=== PATIENT | female | born 1935 | race Two or more races ===

== ENCOUNTER 2017-03-12 09:25 | Outpatient (CLI) | payer OTHER ==
[~2017-03-12 09:25] MED LIST: CIPRO500 MG PO; GLYBURIDE 2.5 MG; IBUPROFEN800 MG PO
== END 2017-03-12 10:11 | disposition home or self-care (01) ==
LOC: LAB 09:25
DX: E78.2 Mixed hyperlipidemia (principal); E11.65 Type 2 diabetes mellitus with hyperglycemia

== ENCOUNTER 2017-08-15 12:36 | Outpatient (CLI) | payer OTHER | END 2017-08-15 12:39 | disposition home or self-care (01) | LOC: RAD 12:36 | DX: R06.89 Other abnormalities of breathing (principal) ==

== ENCOUNTER 2017-10-20 10:43 | Outpatient (CLI) | payer OTHER | END 2017-10-20 10:48 | disposition home or self-care (01) | LOC: LAB 10:43 | DX: E78.2 Mixed hyperlipidemia (principal); E11.65 Type 2 diabetes mellitus with hyperglycemia; Z12.11 Encounter for screening for malignant neoplasm of colon ==

== ENCOUNTER 2018-02-16 12:56 | Outpatient (CLI) | payer OTHER | END 2018-02-16 13:06 | disposition home or self-care (01) | LOC: LAB 12:56 | DX: E78.2 Mixed hyperlipidemia (principal); E11.65 Type 2 diabetes mellitus with hyperglycemia; I10 Essential (primary) hypertension ==

== ENCOUNTER 2018-04-30 10:26 | Outpatient (CLI) | payer OTHER | END 2018-04-30 10:43 | disposition home or self-care (01) | LOC: LAB 10:26 | DX: E78.2 Mixed hyperlipidemia (principal); E11.65 Type 2 diabetes mellitus with hyperglycemia; I10 Essential (primary) hypertension ==

== ENCOUNTER 2018-07-30 09:17 | Outpatient (CLI) | payer OTHER | END 2018-07-30 12:02 | disposition home or self-care (01) | LOC: LAB 09:17 | DX: E78.2 Mixed hyperlipidemia (principal); E11.65 Type 2 diabetes mellitus with hyperglycemia ==

== ENCOUNTER 2018-10-28 09:51 | Outpatient (CLI) | payer OTHER | END 2018-10-28 09:58 | disposition home or self-care (01) | LOC: LAB 09:51 | DX: E78.2 Mixed hyperlipidemia (principal); E11.65 Type 2 diabetes mellitus with hyperglycemia; I10 Essential (primary) hypertension; E55.9 Vitamin D deficiency, unspecified ==

== ENCOUNTER 2019-02-17 09:25 | Outpatient (CLI) | payer OTHER | END 2019-02-17 09:32 | disposition home or self-care (01) | LOC: LAB 09:25 | DX: E78.2 Mixed hyperlipidemia (principal); E11.65 Type 2 diabetes mellitus with hyperglycemia; I10 Essential (primary) hypertension ==

== ENCOUNTER 2020-01-14 09:16 | Outpatient (CLI) | payer OTHER | END 2020-01-14 09:24 | disposition home or self-care (01) | LOC: LAB 09:16 | PROVIDERS: ATTEND Specialist | DX: E11.29 Type 2 diabetes mellitus with other diabetic kidney complication (principal); I10 Essential (primary) hypertension; R06.09 Other forms of dyspnea; E78.00 Pure hypercholesterolemia, unspecified; E06.0 Acute thyroiditis; E55.9 Vitamin D deficiency, unspecified ==

== ENCOUNTER 2020-04-11 09:22 | Outpatient (CLI) | payer OTHER | END 2020-04-11 09:26 | disposition home or self-care (01) | LOC: LAB 09:22 | PROVIDERS: ATTEND Specialist | DX: E11.9 Type 2 diabetes mellitus without complications (principal); E78.2 Mixed hyperlipidemia; E06.0 Acute thyroiditis; I10 Essential (primary) hypertension ==

== ENCOUNTER 2021-08-21 02:40 | Emergency (ER) | payer OTHER ==
[~2021-08-21] VITALS: Ht 149.9 cm; Wt 68.0 kg
[2021-08-21] MEDS ORDERED: KETO10TA2 PO (05:33)
[2021-08-21] MEDS ORDERED: NORFLEX100MG PO (05:33)
== END 2021-08-21 06:00 | disposition home or self-care (01) ==
LOC: ER 02:40
DX: R07.89 Other chest pain (principal); M54.9 Dorsalgia, unspecified; Z20.822 Contact with and (suspected) exposure to COVID-19

== ENCOUNTER 2022-04-24 12:43 | Outpatient (CLI) | payer OTHER ==
[~2022-04-24 12:43] MED LIST changes: +GLIMEPIRIDE1 M1; +KETO10TA2 PO; +NORFLEX100MG PO
== END 2022-04-24 12:54 | disposition home or self-care (01) ==
LOC: NUCLEAR 12:43
PROVIDERS: ATTEND Specialist
DX: M81.0 Age-related osteoporosis without current pathological fracture (principal)

== ENCOUNTER 2022-07-17 08:25 | Outpatient (CLI) | payer OTHER | END 2022-07-17 08:29 | disposition home or self-care (01) | LOC: LAB 08:25 | PROVIDERS: ATTEND Specialist | DX: E78.2 Mixed hyperlipidemia (principal); E11.65 Type 2 diabetes mellitus with hyperglycemia; I10 Essential (primary) hypertension ==

== ENCOUNTER 2022-10-23 08:18 | Outpatient (CLI) | payer OTHER | END 2022-10-23 08:20 | disposition home or self-care (01) | LOC: LAB 08:18 | PROVIDERS: ATTEND Specialist | DX: E78.2 Mixed hyperlipidemia (principal); I10 Essential (primary) hypertension; E11.65 Type 2 diabetes mellitus with hyperglycemia ==

== ENCOUNTER 2022-11-05 13:02 | Outpatient (CLI) | payer OTHER | END 2022-11-05 13:20 | disposition home or self-care (01) | LOC: MRI 13:02 | PROVIDERS: ATTEND Specialist | DX: Z12.31 Encounter for screening mammogram for malignant neoplasm of breast (principal); N63.0 Unspecified lump in unspecified breast; G47.51 Confusional arousals; R41.0 Disorientation, unspecified; F02.A3 Dementia in other diseases classified elsewhere, mild, with mood disturbance | CPT/HCPCS: 70551 ==

== ENCOUNTER 2023-01-22 10:40 | Outpatient (CLI) | payer OTHER ==
[2023-01-22 11:32] LABS: HEMOGLOBIN 13.9 g/dL (12.0-15.00); MEAN CELL VOLUME 91.2 fL (80.00-100.00); MEAN CORPUSCULAR HEMOGLOBIN 30.2 pg (27.00-32.0); MEAN CORPUSCULAR HGB CONC 33.1 g/dl (32.0-36.0); PLATELET COUNT 246 K/uL (150-450); RED BLOOD COUNT 4.61 M/uL (4.00-6.00); RED CELL DISTRIBUTION WIDTH 13.8 % (11.5-14.5)
[2023-01-22 12:07] LABS: ALBUMIN 3.7 gm/dL (3.4-5.0); BILIRUBIN TOTAL 0.56 mg/dL (0.3-1.2); CALCIUM 9.6 mg/dL (8.5-10.1); CHOL HDL RATIO 2.6 (0-5.0); CREATININE SERUM 0.95 mg/dL (0.55-1.02); GFR 55.77; GLOBULINA 4.3 G/DL (2.4-3.5); POTASSIUM 4.37 mEq/L (3.5-5.1)
== END 2023-01-22 10:47 | disposition home or self-care (01) ==
LOC: LAB 10:40
PROVIDERS: ATTEND Specialist
DX: E78.2 Mixed hyperlipidemia (principal); E11.65 Type 2 diabetes mellitus with hyperglycemia; E53.8 Deficiency of other specified B group vitamins; I10 Essential (primary) hypertension

== ENCOUNTER 2023-04-08 12:22 | Inpatient (IN) | payer OTHER ==
[~2023-04-08] VITALS: Ht 160 cm; Wt 71.2 kg
[2023-04-08] MEDS ORDERED: METHYLPREDNISOLONE SOD SUCC 125 MG VIAL IV ONE (15:45)
[2023-04-08] MEDS ORDERED: IPRATROPIUM BROMIDE 0.5 MG/2.5 ML AMPUL.NEB IH SCH ×2 (15:45→21:00)
[2023-04-08] MEDS ORDERED: LEVALBUTEROL HCL 0.63 MG/3 ML SOLUTION IH SCH ×2 (15:45→21:00)
[2023-04-08 16:23] LABS: HEMATOCRIT 44.1 % (36.0-45.00); HEMOGLOBIN 14.6 g/dL (12.0-15.00); MEAN CORPUSCULAR HEMOGLOBIN 30.1 pg (27.00-32.0); MEAN CORPUSCULAR HGB CONC 33.1 g/dl (32.0-36.0); PLATELET COUNT 264 K/uL (150-450); RED BLOOD COUNT 4.85 M/uL (4.00-6.00); RED CELL DISTRIBUTION WIDTH 13.4 % (11.5-14.5)
[2023-04-08 16:43] LABS: CREATININE SERUM 0.93 mg/dL (0.55-1.02); GFR 57.16; POTASSIUM 4.66 mEq/L (3.5-5.1)
[2023-04-08 18:16] LABS: ABG PH 7.386 (7.35-7.45); ABG PO2 71.7 mmHg (80-100); ABG pCO2 36.7 mmHg (35-45); SaO2 93.8 %
[2023-04-08 18:17] LABS: BASE EXCESS -2.9 mmol/l; BICARBONATE 21.5 mmol/l (23-25); Tco2 22.6 mmol/l; allen test SATISFACTORY; o2 21 %; puncture site RADIAL RIGHT
[2023-04-08] MEDS ORDERED: ONDANSETRON HCL 4 MG in 0.9 % SODIUM CHLORIDE 50 ML IV PRN (20:15)
[2023-04-08] MEDS ORDERED: DEXTROSE 50 % IN WATER 0.5 G/ML DISP.SYRIN IV PRN (20:15)
[2023-04-08] MEDS ORDERED: INSULIN LISPRO 1,000 UNIT/10 ML UNITS SUBCUTANEO PRN (20:15)
[2023-04-08] MEDS ORDERED: BENZONATATE 100 MG CAPSULE PO PRN (20:15)
[2023-04-08] MEDS ORDERED: METHYLPREDNISOLONE SOD SUCC 40 MG VIAL IV SCH (21:00)
[2023-04-08] MEDS ORDERED: BUDESONIDE 0.5 MG/2 ML AMPUL.NEB IH SCH (21:00)
[2023-04-08] MEDS ORDERED: INSULIN REGULAR, HUMAN 300 UNITS/3 ML UNITS SUBCUTANEO ONE (22:00)
[2023-04-08] MEDS ORDERED: INSULIN REGULAR, HUMAN 300 UNITS/3 ML UNITS IV ONE (22:00)
[2023-04-09 06:17] LABS: HEMATOCRIT 39.7 % (36.0-45.00); HEMOGLOBIN 13.3 g/dL (12.0-15.00); MEAN CELL VOLUME 89.5 fL (80.00-100.00); MEAN CORPUSCULAR HGB CONC 33.5 g/dl (32.0-36.0); PLATELET COUNT 223 K/uL (150-450); RED BLOOD COUNT 4.43 M/uL (4.00-6.00); RED CELL DISTRIBUTION WIDTH 13.7 % (11.5-14.5)
[2023-04-09 06:47] LABS: CALCIUM 9.3 mg/dL (8.5-10.1); CREATININE SERUM 0.88 mg/dL (0.55-1.02); GFR 60.93; POTASSIUM 4.77 mEq/L (3.5-5.1)
[2023-04-09] MEDS ORDERED: CEFTRIAXONE SODIUM 2,000 MG in DEXTROSE 5 % IN WATER 100 ML IV SCH (09:00)
[2023-04-09] MEDS ORDERED: AZITHROMYCIN 500 MG in 0.9 % SODIUM CHLORIDE 250 ML IV SCH (09:00)
[2023-04-09] MEDS ORDERED: PANTOPRAZOLE SODIUM 40 MG/VIAL VIAL IV SCH (09:00)
[2023-04-10 06:37] LABS: HEMATOCRIT 37.5 % (36.0-45.00); HEMOGLOBIN 12.4 g/dL (12.0-15.00); MEAN CELL VOLUME 90.3 fL (80.00-100.00); MEAN CORPUSCULAR HGB CONC 33.2 g/dl (32.0-36.0); PLATELET COUNT 266 K/uL (150-450); RED BLOOD COUNT 4.15 M/uL (4.00-6.00); RED CELL DISTRIBUTION WIDTH 13.4 % (11.5-14.5)
[2023-04-10 06:54] LABS: C-REACTIVE PROTEIN 0.58 MG/DL (0.00-0.29)
[2023-04-10] MEDS ORDERED: ALPRAzolam 0.5 MG TABLET PO SCH (21:00)
[2023-04-10] MEDS ORDERED: METHYLPREDNISOLONE SOD SUCC 40 MG VIAL IV SCH (21:00)
[2023-04-11 06:14] LABS: HEMATOCRIT 38.4 % (36.0-45.00); HEMOGLOBIN 12.8 g/dL (12.0-15.00); MEAN CELL VOLUME 91.4 fL (80.00-100.00); MEAN CORPUSCULAR HEMOGLOBIN 30.4 pg (27.00-32.0); MEAN CORPUSCULAR HGB CONC 33.2 g/dl (32.0-36.0); PLATELET COUNT 266 K/uL (150-450); RED CELL DISTRIBUTION WIDTH 13.4 % (11.5-14.5)
[2023-04-11 06:22] LABS: ALBUMIN 3.3 gm/dL (3.4-5.0); BILIRUBIN TOTAL 0.25 mg/dL (0.3-1.2); CALCIUM 9.7 mg/dL (8.5-10.1); CREATININE SERUM 1.01 mg/dL (0.55-1.02); GFR 51.97; GLOBULINA 4.2 G/DL (2.4-3.5); MAGNESIUM 2.3 mg/dL (1.8-2.4); PHOSPHOROUS 3.8 mg/dL (2.5-4.9); POTASSIUM 5.13 mEq/L (3.5-5.1); TOTAL PROTEIN 7.5 gm/dL (6.4-8.2)
[2023-04-13 07:39] LABS: MEAN CELL VOLUME 90.1 fL (80.00-100.00); MEAN CORPUSCULAR HGB CONC 33.3 g/dl (32.0-36.0); PLATELET COUNT 276 K/uL (150-450); RED BLOOD COUNT 4.33 M/uL (4.00-6.00); RED CELL DISTRIBUTION WIDTH 13.2 % (11.5-14.5)
[2023-04-13 07:55] LABS: CALCIUM 9.3 mg/dL (8.5-10.1); CREATININE SERUM 0.81 mg/dL (0.55-1.02); GFR 67.04; POTASSIUM 4.79 mEq/L (3.5-5.1)
[2023-04-13] MEDS ORDERED: REG INSULIN SUBCUTANEO SCH (08:00)
[2023-04-13] MEDS ORDERED: INSULIN NPH HUM SUBCUTANEO SCH (08:00)
[2023-04-13] MEDS ORDERED: INSULIN NPH HUMAN ISOPHANE 1,000 UNITS/10 ML UNITS SUBCUTANEO SCH (21:00)
[2023-04-14] MEDS ORDERED: REG INSULIN SUBCUTANEO SCH (08:00)
[2023-04-14] MEDS ORDERED: INSULIN NPH HUM SUBCUTANEO SCH (08:00)
[2023-04-15] MEDS ORDERED: MEDROLPACK PO (16:35)
[2023-04-16] MEDS ORDERED: INSULIN NPH HUM/REG INSULIN HM 1,000 UNIT/10 ML UNITS SUBCUTANEO SCH (08:00)
== END 2023-04-15 18:55 | disposition home or self-care (01) | DRG 190 ==
LOC: ER 12:22 → MEDJ 20:22
PROVIDERS: General Practice; Internal Medicine; Internal Medicine Infectious Disease; ADMIT Internal Medicine; ATTEND Internal Medicine
PROC: BB24ZZZ Computerized Tomography (CT Scan) of Bilateral Lungs (ICD-10-PCS; principal; 2023-04-08)
PROC: 3E0F7GC Introduction of Other Therapeutic Substance into Respiratory Tract, Via Natural or Artificial Opening (ICD-10-PCS; 2023-04-08)
PROC: B246ZZZ Ultrasonography of Right and Left Heart (ICD-10-PCS; 2023-04-10)
DX: J44.1 Chronic obstructive pulmonary disease with (acute) exacerbation (principal); J18.9 Pneumonia, unspecified organism; E11.9 Type 2 diabetes mellitus without complications; Z79.4 Long term (current) use of insulin

== ENCOUNTER → 2023-05-01 09:33 | Outpatient (CLI) | payer OTHER ==
[~2023-05-01 09:33] MED LIST changes: +MEDROLPACK PO
[2023-05-01 10:46] LABS: HEMATOCRIT 42.6 % (36.0-45.00); HEMOGLOBIN 14.2 g/dL (12.0-15.00); MEAN CELL VOLUME 88.9 fL (80.00-100.00); MEAN CORPUSCULAR HEMOGLOBIN 29.6 pg (27.00-32.0); MEAN CORPUSCULAR HGB CONC 33.3 g/dl (32.0-36.0); PLATELET COUNT 206 K/uL (150-450); RED BLOOD COUNT 4.79 M/uL (4.00-6.00); RED CELL DISTRIBUTION WIDTH 13.8 % (11.5-14.5)
[2023-05-01 11:12] LABS: ALBUMIN 3.4 gm/dL (3.4-5.0); BILIRUBIN TOTAL 0.52 mg/dL (0.3-1.2); CALCIUM 9.5 mg/dL (8.5-10.1); CHOL HDL RATIO 2.7 (0-5.0); CREATININE SERUM 0.72 mg/dL (0.55-1.02); GFR 76.8; POTASSIUM 4.2 mEq/L (3.5-5.1); TOTAL PROTEIN 7.4 gm/dL (6.4-8.2)
== END | disposition home or self-care (01) ==
LOC: LAB 09:33
PROVIDERS: ATTEND Specialist
DX: E78.2 Mixed hyperlipidemia (principal); E11.65 Type 2 diabetes mellitus with hyperglycemia; I10 Essential (primary) hypertension

== ENCOUNTER 2023-09-03 08:48 | Emergency (ER) | payer OTHER ==
[~2023-09-03] VITALS: Ht 154.9 cm; Wt 70.3 kg
[2023-09-03] MEDS ORDERED: FAMOTIDINE/PF 20 MG in 0.9 % SODIUM CHLORIDE 8 ML IV PUSH STA (09:24)
[2023-09-03] MEDS ORDERED: DIPHENOXYLATE HCL/ATROPINE 1 UDTAB TABLET PO ONE (09:30)
[2023-09-03] MEDS ORDERED: GUAIFENESIN/DEXTROMETHORPHAN 10ML BLIST.PACK PO ONE (09:30)
[2023-09-03] MEDS ORDERED: 0.9 % SODIUM CHLORIDE 1,000 ML IV ONE (09:30)
[2023-09-03] MEDS ORDERED: FAMOTIDINE/PF 20 MG/2 ML VIAL ONE (09:56)
[2023-09-03] MEDS ORDERED: GUAIFEN/DEXTROMETHORPHAN/PE 10 ML BLIST.PACK PO ONE (09:56)
[2023-09-03 10:18] LABS: HEMATOCRIT 43.9 % (36.0-45.00); HEMOGLOBIN 14.9 g/dL (12.0-15.00); MEAN CELL VOLUME 89.7 fL (80.00-100.00); MEAN CORPUSCULAR HEMOGLOBIN 30.4 pg (27.00-32.0); MEAN CORPUSCULAR HGB CONC 33.9 g/dl (32.0-36.0); PLATELET COUNT 266 K/uL (150-450); RED CELL DISTRIBUTION WIDTH 13.6 % (11.5-14.5)
[2023-09-03 11:16] LABS: ALBUMIN 3.7 gm/dL (3.4-5.0); BILIRUBIN TOTAL 0.45 mg/dL (0.3-1.2); CREATININE SERUM 0.95 mg/dL (0.55-1.02); GFR 55.77; GLOBULINA 4.9 G/DL (2.4-3.5); POTASSIUM 4.26 mEq/L (3.5-5.1); TOTAL PROTEIN 8.6 gm/dL (6.4-8.2)
[2023-09-03 11:43] LABS: PH,URINE 5.5 (5.0-8.0); URINE APPEARANCE Clear; URINE BILIRRUBIN Negative (NEGATIVE); URINE BLOOD Negative; URINE COLOR Yellow; URINE GLUCOSE Negative (NEGATIVE); URINE LEUKOCYTE Small; URINE NITRATE Negative; URINE PROTEIN 30 (NEGATIVE); URINE UROBILINOGEN 0.2 E.U./dl
[2023-09-03 11:46] LABS: URINE BACTERIA 100.7 uL (0.0-1933); URINE EPITHELIAL CELLS 61.2 uL (0.0-38.8); URINE RBC 2.7 uL (0.0-20.8); URINE WBC 17.6 uL (0.0-23.2)
[2023-09-03] MEDS ORDERED: PEPCID AC20 MG PO (13:24)
[2023-09-03] MEDS ORDERED: TUSNEL LIQUID178 ML PO (14:11)
[2023-09-03] MEDS ORDERED: ZITHROMAX500 MG PO (14:11)
== END 2023-09-03 14:17 | disposition home or self-care (01) ==
LOC: ER 08:49
PROVIDERS: General Practice
DX: B34.9 Viral infection, unspecified (principal); R19.7 Diarrhea, unspecified; Z20.822 Contact with and (suspected) exposure to COVID-19; Z88.5 Allergy status to narcotic agent

== ENCOUNTER 2023-09-24 09:14 | Emergency (ER) | payer OTHER ==
[~2023-09-24] VITALS: Ht 154.9 cm; Wt 69.4 kg
[~2023-09-24 09:14] MED LIST changes: +PEPCID AC20 MG PO; +TUSNEL LIQUID178 ML PO; +ZITHROMAX500 MG PO
[2023-09-24] MEDS ORDERED: ONDANSETRON HCL 2 MG/ML VIAL ONE (09:42)
[2023-09-24] MEDS ORDERED: FAMOtidine 200mg/20ml VIAL ONE (09:44)
[2023-09-24] MEDS ORDERED: 0.9 % SODIUM CHLORIDE 500 ML IV ONE (09:45)
[2023-09-24] MEDS ORDERED: ONDANSETRON HCL 2 MG/ML VIAL IV ONE (09:45)
[2023-09-24] MEDS ORDERED: FAMOtidine 10 MG/ML (4ML VIAL) IV ONE (09:45)
[2023-09-24 11:05] LABS: HEMATOCRIT 37.4 % (36.0-45.00); HEMOGLOBIN 12.6 g/dL (12.0-15.00); MEAN CELL VOLUME 87.8 fL (80.00-100.00); MEAN CORPUSCULAR HEMOGLOBIN 29.6 pg (27.00-32.0); MEAN CORPUSCULAR HGB CONC 33.8 g/dl (32.0-36.0); PLATELET COUNT 215 K/uL (150-450); RED BLOOD COUNT 4.26 M/uL (4.00-6.00)
[2023-09-24 11:27] LABS: ALBUMIN 3.2 gm/dL (3.4-5.0); BILIRUBIN TOTAL 0.38 mg/dL (0.3-1.2); CREATININE SERUM 0.75 mg/dL (0.55-1.02); GFR 73.27; GLOBULINA 4.1 G/DL (2.4-3.5); POTASSIUM 3.82 mEq/L (3.5-5.1); TOTAL PROTEIN 7.3 gm/dL (6.4-8.2)
== END 2023-09-24 15:03 | disposition home or self-care (01) ==
LOC: ER 09:15
PROVIDERS: General Practice
DX: R19.7 Diarrhea, unspecified (principal); A05.9 Bacterial foodborne intoxication, unspecified; Z88.8 Allergy status to other drugs, medicaments and biological substances; Z20.822 Contact with and (suspected) exposure to COVID-19; E11.9 Type 2 diabetes mellitus without complications; Z79.84 Long term (current) use of oral hypoglycemic drugs
CPT/HCPCS: 36415; 96365; 99282; J2405; J3490; J7042

== ENCOUNTER 2024-03-07 10:55 | Emergency (ER) | payer OTHER ==
[~2024-03-07] VITALS: Ht 160 cm; Wt 69.9 kg
[2024-03-07] MEDS ORDERED: KETOROLAC TROMETHAMINE 30 MG VIAL IM STA (12:52)
[2024-03-07] MEDS ORDERED: KETOROLAC TROMETHAMINE 60 MG VIAL IM ONE (13:00)
[2024-03-07 13:59] LABS: HEMATOCRIT 40.6 % (36.0-45.00); HEMOGLOBIN 13.5 g/dL (12.0-15.00); MEAN CORPUSCULAR HEMOGLOBIN 29.8 pg (27.00-32.0); MEAN CORPUSCULAR HGB CONC 33.2 g/dl (32.0-36.0); PLATELET COUNT 229 K/uL (150-450); RED BLOOD COUNT 4.52 M/uL (4.00-6.00); RED CELL DISTRIBUTION WIDTH 13.8 % (11.5-14.5)
== END 2024-03-07 14:58 | disposition home or self-care (01) ==
LOC: ER 10:58
PROVIDERS: General Practice
DX: M94.0 Chondrocostal junction syndrome [Tietze] (principal); Z88.5 Allergy status to narcotic agent

== ENCOUNTER 2024-06-19 22:39 | Emergency (ER) | payer OTHER ==
[~2024-06-19] VITALS: Ht 160 cm; Wt 69.4 kg
[2024-06-20] MEDS ORDERED: FAMOTIDINE/PF 20 MG in 0.9 % SODIUM CHLORIDE 8 ML IV PUSH STA (00:18)
[2024-06-20] MEDS ORDERED: ONDANSETRON HCL 2 MG/ML VIAL ONE (00:22)
[2024-06-20] MEDS ORDERED: FAMOTIDINE/PF 20 MG/2 ML VIAL ONE (00:22)
[2024-06-20] MEDS ORDERED: HYOSCYAMINE SULFATE 0.125 MG TAB.SUBL ONE (00:22)
[2024-06-20] MEDS ORDERED: 0.9 % SODIUM CHLORIDE 1,000 ML IV SCH (00:30)
[2024-06-20] MEDS ORDERED: ONDANSETRON HCL 2 MG/ML VIAL IV ONE (00:30)
[2024-06-20] MEDS ORDERED: HYOSCYAMINE SULFATE 0.125 MG TAB.SUBL SL ONE (00:30)
[2024-06-20 01:21] LABS: HEMATOCRIT 39.4 % (36.0-45.00); MEAN CELL VOLUME 89.9 fL (80.00-100.00); MEAN CORPUSCULAR HEMOGLOBIN 29.7 pg (27.00-32.0); MEAN CORPUSCULAR HGB CONC 33.1 g/dl (32.0-36.0); PLATELET COUNT 224 K/uL (150-450); RED BLOOD COUNT 4.39 M/uL (4.00-6.00); RED CELL DISTRIBUTION WIDTH 14.1 % (11.5-14.5)
[2024-06-20 01:32] LABS: ALBUMIN 3.3 gm/dL (3.4-5.0); BILIRUBIN TOTAL 0.44 mg/dL (0.3-1.2); CALCIUM 8.8 mg/dL (8.5-10.1); CREATININE SERUM 0.95 mg/dL (0.55-1.02); GFR 55.64; GLOBULINA 4.1 G/DL (2.4-3.5); POTASSIUM 4.51 mEq/L (3.5-5.1); TOTAL PROTEIN 7.4 gm/dL (6.4-8.2)
[2024-06-20 01:50] LABS: URINE APPEARANCE Clear; URINE BILIRRUBIN Negative (NEGATIVE); URINE BLOOD Small; URINE COLOR Yellow; URINE GLUCOSE Negative (NEGATIVE); URINE KETONE Negative (NEGATIVE); URINE LEUKOCYTE Small; URINE NITRATE Negative; URINE PROTEIN Negative (NEGATIVE); URINE UROBILINOGEN 0.2 E.U./dl
[2024-06-20 01:51] LABS: URINE BACTERIA 734.1 uL (0.0-1933); URINE EPITHELIAL CELLS 14.3 uL (0.0-38.8); URINE RBC 16.7 uL (0.0-20.8); URINE WBC 54.4 uL (0.0-23.2)
[2024-06-20 01:54] LABS: URINE CAST 0.44 uL (0.0-1.40)
== END 2024-06-20 06:01 | disposition home or self-care (01) ==
LOC: ER 22:41
PROVIDERS: General Practice
DX: K29.70 Gastritis, unspecified, without bleeding (principal); Z88.8 Allergy status to other drugs, medicaments and biological substances; E11.9 Type 2 diabetes mellitus without complications; Z79.84 Long term (current) use of oral hypoglycemic drugs
CPT/HCPCS: 36415; 74176; 93005; 96365; 96366; 99284; J2405; J3490; J7030

== ENCOUNTER 2024-12-18 16:08 | Emergency (ER) | payer OTHER ==
[~2024-12-18] VITALS: Ht 157.5 cm; Wt 69.4 kg
[2024-12-18] MEDS ORDERED: CEFTRIAXONE SODIUM 1,000 MG VIAL IV ONE (18:00)
[2024-12-18] MEDS ORDERED: FAMOtidine 10 MG/ML (4ML VIAL) IV ONE (18:00)
[2024-12-18] MEDS ORDERED: 0.9 % SODIUM CHLORIDE 1,000 ML IV ONE (18:00)
[2024-12-18] MEDS ORDERED: CEFTRIAXONE SODIUM 1,000 MG VIAL ONE (18:11)
[2024-12-18] MEDS ORDERED: FAMOTIDINE/PF 20 MG/2 ML VIAL ONE (18:11)
[2024-12-18 18:57] LABS: BASO % 0.9 % (0.1-1.2); EOS # 0.15 (0.04-0.54); EOS % 1.9 % (0.7-7.0); LYMPH # 2.44 (1.18-3.74); LYMPH % 30.8 % (19.3-53.1); MEAN PLATELET VOLUME 10.80 fl (9.4-12.4); MONO # 0.62 (0.24-0.82); MONO % 7.8 % (4.7-12.5); NEUT # 4.62 (1.56-6.13); NEUT % 58.5 % (34.0-71.1); RED CELL DISTRIBUTION WIDTH 13.8 % (11.6-14.4)
[2024-12-18 19:18] LABS: URINE APPEARANCE Clear; URINE BILIRRUBIN Negative (NEGATIVE); URINE BLOOD Negative; URINE COLOR Orange; URINE GLUCOSE Negative (NEGATIVE); URINE KETONE Negative (NEGATIVE); URINE LEUKOCYTE Small; URINE NITRATE Positive; URINE PROTEIN Negative (NEGATIVE); URINE UROBILINOGEN 1.0 E.U./dl
[2024-12-18 19:20] LABS: INR 0.98
[2024-12-18 19:22] LABS: URINE BACTERIA 37.1 uL (0.0-1933); URINE EPITHELIAL CELLS 40.2 uL (0.0-38.8); URINE RBC 3.2 uL (0.0-20.8); URINE WBC 5.3 uL (0.0-23.2)
[2024-12-18 19:23] LABS: ALT/SGPT 27.0 U/L (12-78); AST/SGOT 24.0 U/L (15-37); BILIRUBIN TOTAL 0.36 mg/dL (0.3-1.2); BUN CREA RATIO 18.0 (7.0-25.0); CREATININE SERUM 1.1 mg/dL (0.55-1.02); GFR 46.87; GLOBULINA 3.9 G/DL (2.4-3.5); GLUCOSE FASTING 138.0 mg/dL (65-100); OSMOLALITY SERUM 280.0 MOSM/KG (275-295)
[2024-12-18 19:31] LABS: URINE CAST 0.14 uL (0.0-1.40)
[2024-12-18] MEDS ORDERED: PEPCID AC20 MG PO (19:37)
[2024-12-18] MEDS ORDERED: BACTRIM DS TAB1 EACH PO (19:37)
== END 2024-12-18 20:27 | disposition home or self-care (01) ==
LOC: ER 16:08
PROVIDERS: General Practice
DX: N39.0 Urinary tract infection, site not specified (principal); E11.9 Type 2 diabetes mellitus without complications; Z79.84 Long term (current) use of oral hypoglycemic drugs; Z88.8 Allergy status to other drugs, medicaments and biological substances
CPT/HCPCS: 36415; 96365; 99282; J0696; J3490; J7030